=== PATIENT | male | born 1945 | race Caucasian/White ===

== ENCOUNTER 2024-12-13 16:34 | Emergency (ER) | payer MEDICARE ==
[2024-12-13 16:47] VITALS: PULSE 66; RESP 16; TEMP 97
[2024-12-13 18:12] VITALS: BP 178/91; O2SAT 99
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
== END 2024-12-13 18:51 | disposition home or self-care (01) ==
LOC: ED 16:34
DX: I10 Essential (primary) hypertension (principal); R42 Dizziness and giddiness; E11.9 Type 2 diabetes mellitus without complications; Z79.899 Other long term (current) drug therapy